=== PATIENT | female | born 1985 | race Caucasian/White ===

== ENCOUNTER 2016-05-23 09:03 | Outpatient (CLI) | payer MEDICAID ==
[~2016-05-23 09:03] MED LIST: ABILIFY10 MG; DILAUDID2 MG PO; HYDROMORPHONE2 MG PO; IBUPROFEN400 MG PO; IRON TABLETS325 MG PO; MOTRIN 400MG.400 MG PO; MOTRIN400 MG PO; NATURAL IRON65 MG PO; PERCOCET 5/3251 EACH PO; PHENERGAN OR; PNV-SELECT1 TAB PO; PRENATAL PLUS1 TA1 PO; ROBITUSSIN DM S10 ML NG; SERTRALINE25 MG PO; SUBTEX OR; SYNTHROID0.025 MG PO; XANAX2 MG PO; ZOLOFT25 MG PO
[2016-05-23 09:20] VITALS: BP 129/69
[2016-05-23 09:40] VITALS: BP 136/83
== END 2016-05-23 09:45 | disposition home or self-care (01) ==
LOC: COP 09:03
DX: L03.311 Cellulitis of abdominal wall (principal); Z48.00 Encounter for change or removal of nonsurgical wound dressing
CPT/HCPCS: G0463

== ENCOUNTER 2016-06-02 08:45 | Outpatient (CLI) | payer MEDICAID | END 2016-06-02 09:50 | disposition home or self-care (01) | LOC: COP 08:45 | DX: L03.311 Cellulitis of abdominal wall (principal); Z48.00 Encounter for change or removal of nonsurgical wound dressing | CPT/HCPCS: G0463 ==

== ENCOUNTER 2016-06-03 09:00 | Outpatient (CLI) | payer MEDICAID | END 2016-06-03 10:05 | disposition home or self-care (01) | LOC: COP 09:00 | DX: L03.311 Cellulitis of abdominal wall (principal); Z48.00 Encounter for change or removal of nonsurgical wound dressing | CPT/HCPCS: G0463 ==

== ENCOUNTER 2016-06-04 09:00 | Outpatient (CLI) | payer MEDICAID | END 2016-06-04 10:00 | disposition home or self-care (01) | LOC: COP 09:00 | DX: L03.311 Cellulitis of abdominal wall (principal); Z48.00 Encounter for change or removal of nonsurgical wound dressing | CPT/HCPCS: G0463 ==

== ENCOUNTER 2016-06-05 12:50 | Outpatient (CLI) | payer MEDICAID | END 2016-06-05 13:45 | disposition home or self-care (01) | LOC: COP 12:50 | DX: L03.311 Cellulitis of abdominal wall (principal); Z48.00 Encounter for change or removal of nonsurgical wound dressing | CPT/HCPCS: G0463 ==

== ENCOUNTER 2016-06-06 08:56 | Outpatient (CLI) | payer MEDICAID | END 2016-06-06 09:15 | disposition home or self-care (01) | LOC: COP 08:56 | DX: L03.311 Cellulitis of abdominal wall (principal); Z48.00 Encounter for change or removal of nonsurgical wound dressing | CPT/HCPCS: G0463 ==

== ENCOUNTER 2016-06-07 08:30 | Outpatient (CLI) | payer MEDICAID | END 2016-06-07 09:15 | disposition home or self-care (01) | LOC: COP 08:30 | DX: L03.311 Cellulitis of abdominal wall (principal); Z48.00 Encounter for change or removal of nonsurgical wound dressing | CPT/HCPCS: G0463 ==

== ENCOUNTER 2016-06-08 08:30 | Outpatient (CLI) | payer MEDICAID | END 2016-06-08 09:30 | disposition home or self-care (01) | LOC: COP 08:30 | DX: L03.311 Cellulitis of abdominal wall (principal); Z48.00 Encounter for change or removal of nonsurgical wound dressing | CPT/HCPCS: G0463 ==

== ENCOUNTER 2016-06-09 09:10 | Outpatient (CLI) | payer MEDICAID | END 2016-06-09 10:15 | disposition home or self-care (01) | LOC: COP 09:10 | DX: L03.311 Cellulitis of abdominal wall (principal); Z48.00 Encounter for change or removal of nonsurgical wound dressing | CPT/HCPCS: G0463 ==

== ENCOUNTER 2016-06-10 09:00 | Outpatient (CLI) | payer MEDICAID | END 2016-06-10 10:00 | disposition home or self-care (01) | LOC: COP 09:00 | DX: L03.311 Cellulitis of abdominal wall (principal); Z48.00 Encounter for change or removal of nonsurgical wound dressing | CPT/HCPCS: G0463 ==

== ENCOUNTER 2016-06-11 08:40 | Outpatient (CLI) | payer MEDICAID | END 2016-06-11 09:40 | disposition home or self-care (01) | LOC: COP 08:40 | DX: L03.311 Cellulitis of abdominal wall (principal); Z48.00 Encounter for change or removal of nonsurgical wound dressing | CPT/HCPCS: G0463 ==

== ENCOUNTER → 2016-06-12 | Outpatient (CLI) | payer MEDICAID ==
[2016-06-12 09:10] VITALS: BP 123/77
[2016-06-12 09:18] VITALS: BP 118/70
== END ==
LOC: COP 09:00
DX: L03.311 Cellulitis of abdominal wall (principal); Z48.00 Encounter for change or removal of nonsurgical wound dressing
CPT/HCPCS: G0463

== ENCOUNTER → 2016-06-13 | Outpatient (CLI) | payer MEDICAID ==
[2016-06-13 15:00] VITALS: BP 103/53
== END ==
LOC: COP 09:00
DX: L03.311 Cellulitis of abdominal wall (principal); Z48.00 Encounter for change or removal of nonsurgical wound dressing
CPT/HCPCS: G0463

== ENCOUNTER 2016-07-05 10:10 | Outpatient (CLI) | payer MEDICAID | END 2016-07-05 10:50 | disposition home or self-care (01) | LOC: COP 10:10 | DX: L03.311 Cellulitis of abdominal wall (principal); Z48.00 Encounter for change or removal of nonsurgical wound dressing | CPT/HCPCS: G0463 ==

== ENCOUNTER 2016-07-06 08:54 | Outpatient (CLI) | payer MEDICAID ==
[2016-07-06 09:20] VITALS: BP 114/68
== END 2016-07-06 09:57 | disposition home or self-care (01) ==
LOC: COP 08:54
DX: L03.311 Cellulitis of abdominal wall (principal); Z48.00 Encounter for change or removal of nonsurgical wound dressing
CPT/HCPCS: G0463

== ENCOUNTER 2016-07-07 10:10 | Outpatient (CLI) | payer MEDICAID | END 2016-07-07 10:50 | disposition home or self-care (01) | LOC: COP 10:10 | DX: L03.311 Cellulitis of abdominal wall (principal); Z48.00 Encounter for change or removal of nonsurgical wound dressing | CPT/HCPCS: G0463 ==

== ENCOUNTER 2016-07-08 09:00 | Outpatient (CLI) | payer MEDICAID | END 2016-07-08 09:40 | disposition home or self-care (01) | LOC: COP 09:00 | DX: L03.311 Cellulitis of abdominal wall (principal); Z48.00 Encounter for change or removal of nonsurgical wound dressing | CPT/HCPCS: G0463 ==

== ENCOUNTER 2016-07-09 11:50 | Outpatient (CLI) | payer MEDICAID | END 2016-07-09 13:00 | disposition home or self-care (01) | LOC: COP 11:50 | DX: L03.311 Cellulitis of abdominal wall (principal); Z48.00 Encounter for change or removal of nonsurgical wound dressing | CPT/HCPCS: G0463 ==

== ENCOUNTER 2016-07-19 08:50 | Outpatient (CLI) | payer MEDICAID | END 2016-07-19 09:22 | disposition home or self-care (01) | LOC: COP 08:50 | DX: L03.311 Cellulitis of abdominal wall (principal); Z48.00 Encounter for change or removal of nonsurgical wound dressing | CPT/HCPCS: G0463 ==

== ENCOUNTER 2016-07-29 09:00 | Outpatient (CLI) | payer MEDICAID | END 2016-07-29 09:45 | disposition home or self-care (01) | LOC: COP 09:00 | DX: L03.311 Cellulitis of abdominal wall (principal); Z48.00 Encounter for change or removal of nonsurgical wound dressing | CPT/HCPCS: G0463 ==

== ENCOUNTER 2016-07-30 08:50 | Outpatient (CLI) | payer MEDICAID | END 2016-07-30 09:40 | disposition home or self-care (01) | LOC: COP 08:50 | DX: L03.311 Cellulitis of abdominal wall (principal); Z48.00 Encounter for change or removal of nonsurgical wound dressing | CPT/HCPCS: G0463 ==

== ENCOUNTER 2016-07-31 18:50 | Outpatient (CLI) | payer MEDICAID ==
[2016-07-31 19:25] VITALS: BP 152/69
== END 2016-07-31 20:05 | disposition home or self-care (01) ==
LOC: COP 18:50
DX: L03.311 Cellulitis of abdominal wall (principal); Z48.00 Encounter for change or removal of nonsurgical wound dressing
CPT/HCPCS: G0463

== ENCOUNTER 2016-08-01 21:08 | Outpatient (CLI) | payer MEDICAID | END 2016-08-01 21:25 | disposition home or self-care (01) | LOC: COP 21:08 | DX: L03.311 Cellulitis of abdominal wall (principal); Z48.00 Encounter for change or removal of nonsurgical wound dressing | CPT/HCPCS: G0463 ==

== ENCOUNTER 2016-08-02 09:40 | Outpatient (CLI) | payer MEDICAID | END 2016-08-02 10:40 | disposition home or self-care (01) | LOC: COP 09:40 | DX: L03.311 Cellulitis of abdominal wall (principal); Z48.00 Encounter for change or removal of nonsurgical wound dressing | CPT/HCPCS: G0463 ==

== ENCOUNTER 2016-08-06 09:00 | Outpatient (CLI) | payer MEDICAID | END 2016-08-06 10:00 | disposition home or self-care (01) | LOC: COP 09:00 | DX: L03.311 Cellulitis of abdominal wall (principal); Z48.00 Encounter for change or removal of nonsurgical wound dressing | CPT/HCPCS: G0463 ==

== ENCOUNTER 2017-01-21 16:04 | Emergency (ER) | payer MEDICAID ==
[~2017-01-21] VITALS: Ht 170.2 cm; Wt 187.8 kg
[~2017-01-21 16:04] MED LIST changes: +CYANOCOBAL1000 MCG/M PO; +FLUTICASONE 50M16 GM; +LORATADINE 10MG10 M1 PO; +SHAROBEL0.35 MG PO; +VALACYCLOVIR H500 M1 PO; +VITAMIN D1000 IU PO
--- NOTE | 2017-01-21 16:37 | [facility] Report ---
History of Present Issue Date/Time Seen by Provider 01/21/17 7888 Visit Reason Pt arrived:Walked Presenting Problem:PT STATES R BREAST PAIN THAT BEGAN TODAY Location if Accident: Onset of symptoms date/time:01/21/17/ or onset unknown for:MEDICAL HX UNKNOWN Have you (or family members/close friends) recently traveled outside the [place]? N If Yes, where/when: Have you had exposure to infectious disease within the past month? TB? Other? Specify: c/o "I think I have mastitis". cold symptoms x days. Had been getting better and still seem to be. All children w/ same symptoms. However today, right breast pain, feeling feverish, aches, chills, "I feel like I have been hit my a truck". Uncomfortable to nurse due to the discomfort but has tried nursing more often, pumping, warm compresses, soaking in warm tub but nothing has helped. pain throughout breast but primarily right side. No redness. Right breast "seems" slightly larger than left "but not sure if has always been that way". Currently nursing her 7th child and reports that except for one 6 month break, she has nursed for the last 13.5 years continously. "This is not normal nursing pain and is very similiar to the episodes of mastitis I have had in the past". Source patient Exam Limitations morbid obesity and very large breast ALLERGIES Coded Allergies: Penicillins (03/24/16) Sulfa (Sulfonamide Antibiotics) (03/24/16) ethinyl estradiol (From NUVARING) (03/24/16) etonogestrel (From NUVARING) (03/24/16) fluconazole (03/24/16) guaifenesin (From MUCINEX) (03/24/16) Home Medications Reported Medications Sertraline Hcl (Zoloft 25MG) 50 MG PO DAILY Levothyroxine Sodium (Synthroid 0.025MG) 0.05 MG PO DAILY Loratadine (Loratadine 10MG Tablet) 10 MG PO DAILY FLUTICASONE PROPIONATE (Fluticasone 50MCG Nasal [place]) 2 SPRAY NA DAILY VALACYCLOVIR HCL (Valacyclovir) 500 MG PO DAILY VITAMIN B12 (Cyanocobalamin Injection) 1,000 MCG PO DAILY CHOLECALCIFEROL (VITAMIN D3) (Vitamin D3) 1,000 IUNITS PO DAILY Norethindrone (Sharobel) 0.35 MG PO DAILY History Medical History General CAD? No Angina: No NC: No Hypertension? No Hyperlipidemia? Yes CHF? No DVT? No PE? No COPD? No Asthma? No Anemia? Yes GERD? No Gastric ulcers? No GI Bleed? No Hernia? No Thyroid Problems? Yes Hypothyroidism? Yes CVA? No Seizures? No Diabetes? No Renal Insuffiency? No UTI? Yes Stones? No GB Disease: No Nephritic Syndrome? No Asplenia? No Hepatitis? No Sickle Cell Disease? No Arthritis? No Migraines? No Cataracts? No Glaucoma? No MRSA? No HIV? No TB? No Anxiety? Yes Depression? Yes Cancer? No Site: HX OFPRE-CANCER ON CERVIX More? No Immunization HX DT/Tetanus > 10 Years Ago Flu Refused Pneumonia Refuses Surgical Hx Previous Surgery?Y D & C RECTAL TEAR REPAIR RECTAL TEAR REPAIR Family History Family HX Diabetes Yes CAD Yes Hypertension Yes Hyperlipidemia Yes Cancer Yes TB Yes Social History Smoking Hx Smoker: Never Smoker Tobacco: No Packs/day N/A Alcohol Alcohol: No Review of Systems All Other Systems Reviewed and Negative Constitutional see HPI, malaise ENT nose discharge, nose congestion. denies: ear pain, throat pain. Respiratory denies shortness of breath Cardiovascular denies chest pain Gastrointestinal denies no symptoms reported Genitourinary denies: dysuria, frequency. Musculoskeletal denies other (only generalized body aches) Skin see HPI, denies change in color, denies lesions, denies lumps Psychiatric/Neurological denies headache Comment denies nipple pain or discharge Physical Exam Vital Signs Vital Signs Date Time Temp Pulse Resp B/P Pulse O2 O2 Flow FiO2 Ox Delivery Rate 01/21 1616 98.8 82 18 143/94 98 General Appearance no apparent distress, morbid obesity Respiratory Status No: respiratory distress. Cardiovascular no peripheral edema Neurologic alert Skin normal color, warm/dry Comments bilateral breast very large. No marked asymmetry. Tenderness throughout right breast without any lumps, lesions or skin discoloration Medical Decision Making LABS/Meds/Orders Pt receiving controlled substance in ED? No Consult MD Physician Consult Consult/PCP Gadiel, Clinic Pharmacist Time Called 1700 Reason antibiotic coverage for nursing mother allergic to PCNs, anything related to PCN and sulfa. Comments He too suggest azithromycin. Departure Departure Time of Disposition 1713 Disposition DC Home or Self Care(routine) Clinical Impression Primary Impression: Acute mastitis of right breast Secondary Impressions: Mother currently breast-feeding Condition STABLE Referrals Duran DOUGHERTY,Jesus Gastelum Return to [facility] or ER this weekend with any new or worsening symptoms. Follow up with Dr. Garzon on Tuesday. Patient Instructions DI for Mastitis Additional Instructions Read attached instructions. * start antibiotic today. Be sure to complete entire prescription even if feeling better. * Monitor breast closely. FU immediately for new or worsening symptoms ( including but not limited to redness, swelling, red streaking, fever, chills). * monitor . Aware azithromycin is excreted in low amounts in breast milk and can lead to symptoms in infant including but not limited to increased sleepiness or diarrhea Discharge Counseling Counseled pt/family regarding diagnosis, medications/RX, home care, follow up needs Prescriptions Current Visit Scripts Azithromycin (Zithromycin (Z-LAZARO) 250MG Tab) 250 MG PO DAILY #6 TAB TAKE TWO (2) TABLETS ON DAY 1, THEN ONE (1) TABLET DAY #2 THRU #5 at 1729
[2017-01-21] MEDS ORDERED: ZITHROMAX Z PA250 MG PO (17:17)
[2017-01-21 17:24] VITALS: BP 143/94
== END 2017-01-21 17:24 | disposition home or self-care (01) ==
LOC: UTC 16:04
DX: N61.0 Mastitis without abscess (principal); Z85.41 Personal history of malignant neoplasm of cervix uteri; Z79.52 Long term (current) use of systemic steroids; Z79.899 Other long term (current) drug therapy; Z88.0 Allergy status to penicillin; Z88.2 Allergy status to sulfonamides; Z88.8 Allergy status to other drugs, medicaments and biological substances; E66.01 Morbid (severe) obesity due to excess calories